=== PATIENT | female | born 1995 ===

== ENCOUNTER 2018-05-19 23:45 | Emergency (ER) | payer SELFPAY ==
[2018-05-20 00:31] VITALS: BP 118/67; TEMP 97.6; O2SAT 96
--- NOTE | 2018-05-20 01:54 | ED PDOC ---
HPI: CCC, URI, Sore Throat Time Seen by Provider: 05/20/18 00:39 Chief Complaint (Nursing): ENT Problem Chief Complaint (Provider): ENT Problem History Per: Patient History/Exam Limitations: no limitations Associated Symptoms: denies: Fever Additional Complaint(s): 23 yo F complains of 2 "bumps" to posterior aspect of left ear which she noticed today. Otherwise: (-) headacge, (-) sore throat, (-) URI symptoms, (-) SOB, (-) chest pain, (-) fever, (-) N/V/D, (-) abdominal pain, (-) flank pain, ( -) urinary symptoms, (-) recent travel, (-) sick contacts. Past Medical History Reviewed: Historical Data, Nursing Documentation, Vital Signs Vital Signs: Last Vital Signs Temp 97.6 F 05/20/18 02:02 Pulse 78 05/20/18 02:02 Resp 16 05/20/18 02:02 BP 118/67 05/20/18 02:02 Pulse Ox 96 05/20/18 04:07 - Medical History PMH: No Chronic Diseases - Surgical History Surgical History: No Surg Hx - Family History Family History: States: Unknown Family Hx - Social History Current smoker - smoking cessation education provided: Yes Alcohol: Social Drugs: Cannabis - Allergies Allergies/Adverse Reactions: Allergies Allergy/AdvReac Type Severity Reaction Status Date / Time peanut Allergy ANAPHYLAXIS Verified 05/20/18 00:28 Review of Systems ROS Statement: Except As Marked, All Systems Reviewed And Found Negative Constitutional: Negative for: Fever ENT: Positive for: Ear Pain (Bumps to post aspect of left ear) Physical Exam - Physical Exam Comments: GENERAL APPEARANCE: Patient is awake, alert, oriented x 3, in no acute distress. SKIN: Warm, dry; (-) cyanosis, (-) rash. EYES: (-) conjunctival pallor, (-) scleral icterus, (-) conjunctival hemorrhage. ENMT: Mucous membranes moist. TMs: (-) erythema. Airway patent: (-) stridor. Pharynx: (-) erythema, (-) exudate. NECK: (-) tenderness, (-) stiffness, (-) meningismus, (+) 2 non tender lymphadenopathy noted to the posterior aspect of the L ear. ABDOMEN AND GI: Soft; (-) tenderness, (-) guarding; (-) organomegaly; (-) mass ; (-) CVA tenderness. EXTREMITIES: (-) deformity; (-) cellulitis, (-) lymphangitis; (-) subungual hemorrhage; (-) edema. NEURO AND PSYCH: Mental status as above; (-) focal findings. - ECG O2 Sat by Pulse Oximetry: 96 (RA) Pulse Ox Interpretation: Normal Medical Decision Making Medical Decision Making: Initial impression: lymphadenopathy. 0130 Advised to follow up with clinic in 1-2 days without fail. Return to the emergency room at any time for any new or worsening symptoms. Patient states she fully agrees with and understands discharge instructions. States that she agrees with the plan and disposition. Verbalized and repeated discharge instructions and plan. I have given the patient opportunity to ask any additional questions. Scribe Attestation: Documented by Alie Clovin, acting as a scribe for Rashmi Locke PA-C. Provider Scribe Attestation: All medical record entries made by the Scribe were at my direction and personally dictated by me. I have reviewed the chart and agree that the record accurately reflects my personal performance of the history, physical exam, medical decision making, and the department course for this patient. I have also personally directed, reviewed, and agree with the discharge instructions and disposition. Disposition - Clinical Impression Clinical Impression: Lymphadenopathy - Patient ED Disposition Is Patient to be Admitted: No Counseled Patient/Family Regarding: Diagnosis, Need For Followup - Disposition Referrals: [facility] [Outside] Disposition: Routine/Home Disposition Time: 01:30 Condition: STABLE Additional Instructions: Thank you for letting us take care of you today. You were treated for lymphadenopathy. The emergency medical care you received today was directed at your acute symptoms. It may take several days for your symptoms to resolve. Return to the Emergency Department if your symptoms worsen, do not improve, or if you have any other problems. Please call one of the physicians/clinics you have been referred to that are listed on the Patient Visit Information form that is included in your discharge packet. Bring any paperwork you were given at discharge with you along with any medications you are taking to your follow up visit. Our treatment cannot replace ongoing medical care by a primary care provider (PCP) outside of the emergency department. Thank you for allowing the [facility] team to be part of your care today. Forms: [facility] [employer] (Swedish) - PA / ADVANCE AGENT / Resident Statement MD/DO has reviewed & agrees with the documentation as recorded.
[2018-05-20 02:02] VITALS: PULSE 78; RESP 16
== END 2018-05-20 02:02 | disposition home or self-care (01) ==
LOC: H.ER 23:45
DX: R59.9 Enlarged lymph nodes, unspecified (principal)